=== PATIENT | female | born 1995 | race Two or more races ===

== ENCOUNTER → 2025-08-12 | Outpatient (CLI) | payer MEDICAID, SELFPAY ==
--- NOTE | 2025-08-12 16:00 | XR_ITS ---
Examination: Pelvic ultrasound, transabdominal, complete Technique: Transabdominal ultrasound of the pelvis performed using grayscale imaging Date and time of exam: August 12, 2025, 1606 hours INDICATIONS: Infertility 1 year irregular menses 11 years FINDINGS: Uterus 7.8 cm Lower uterine segment masses 2.6 x 2.4 cm, 1.6 x 1.7 cm Endometrial stripe 0.8 cm Right ovary 2.6 cm arterial flow Left ovary 3.6 cm arterial flow 14 mm follicular cyst IMPRESSION: Lower uterine segment masses as above, recommend transvaginal pelvic sonography to best assess these masses
== END | disposition home or self-care (01) ==
LOC: CDIM 15:48
PROVIDERS: PCP Physician Assistant
DX: N85.8 Other specified noninflammatory disorders of uterus (principal)
CPT/HCPCS: 76856